=== PATIENT | female | born 1955 | race Caucasian/White ===

== ENCOUNTER → 2020-09-06 | Outpatient (CLI) | payer MEDICARE, BC, OTHER ==
[~2020-09-06] MED LIST: ALBU8.5H8 INH; DULO60CA7 PO; GABA600T7 PO; IBUP200T49 PO; METH-640 PO; METO100T5 PO; TYLENOL #4 PO; VALS80TA3 PO; [UNRECOGNIZED DRUG - OTHER] PO
[2020-09-06 14:33] LABS: ALANINE AMINOTRANSFERASE 37 U/L (12-78); ALBUMIN 3.6 g/dL (3.4-5.0); ANION GAP 5 mmol/L (5-15); CALCIUM 8.4 mg/dL (8.5-10.1); CHLORIDE 105 mmol/L (98-107); CREATININE 0.53 mg/dL (0.55-1.02)
[2020-09-06 14:35] LABS: ALKALINE PHOSPHATASE 119 U/L (45-117); BILIRUBIN,TOTAL 0.3 mg/dL (0.2-1.0); TOTAL PROTEIN 6.8 g/dL (6.4-8.2)
== END | disposition home or self-care (01) ==
LOC: STAR 13:07
PROVIDERS: ATTEND Orthopaedic Surgery
DX: Z01.818 Encounter for other preprocedural examination (principal); M25.512 Pain in left shoulder; Z20.822 Contact with and (suspected) exposure to COVID-19
CPT/HCPCS: 36415; 80053; 93005; U0003

== ENCOUNTER 2020-09-12 08:20 | Inpatient (IN) | payer MEDICARE, BC, OTHER ==
[~2020-09-12] VITALS: Ht 160 cm; Wt 106.8 kg
[2020-09-12] MEDS ORDERED: LACTATED RINGERS 1,000 ML IV SCH (09:00)
[2020-09-12] MEDS ORDERED: CHLORHEXIDINE 15 ML UDC PO ONE (09:00)
[2020-09-12 09:15] VITALS: BP 120/77
[2020-09-12] MEDS ORDERED: TRANEXAMIC ACID 100 MG/ML, 10ML ONE (09:23)
[2020-09-12] MEDS ORDERED: CLINDAMYCIN 150 MG/ML, 6ML ONE (09:23)
[2020-09-12] MEDS ORDERED: BUPIVACAINE/PF 0.5% ONE (09:23)
[2020-09-12] MEDS ORDERED: EPINEPHRINE 1 MG/ML, 1ML ONE (09:24)
[2020-09-12] MEDS ORDERED: VANCOMYCIN 1,000 MG ONE (09:24)
[2020-09-12] MEDS ORDERED: MIDAZOLAM 1 MG/ML, 2ML ONE (09:49)
[2020-09-12] MEDS ORDERED: FENTANYL PF 250 MCG/5ML ONE (09:50)
[2020-09-12] MEDS ORDERED: PROPOFOL 10 MG/ML, 20ML ONE (09:50)
[2020-09-12] MEDS ORDERED: CEFAZOLIN 1,000 MG ONE ×2 (09:52)
[2020-09-12] MEDS ORDERED: ROCURONIUM 10MG/ML,5ML ONE (09:52)
[2020-09-12] MEDS ORDERED: LIDOCAINE-MPF 2% ,5ML ONE (09:52)
[2020-09-12] MEDS ORDERED: DEXAMETHASONE 4 MG/ML, 5ML ONE (09:52)
[2020-09-12] MEDS ORDERED: ONDANSETRON 2MG/ML, 2ML ONE ×2 (09:52→12:14)
[2020-09-12] MEDS ORDERED: GLYCOPYRROLATE 0.2MG/1ML, 5ML ONE (10:29)
[2020-09-12] MEDS ORDERED: NEOSTIGMINE 1 MG/ML, 10ML ONE (10:29)
[2020-09-12] MEDS ORDERED: hydrALAzine 20 MG/ML, 1ML IV PRN (11:30)
[2020-09-12] MEDS ORDERED: DIAZEPAM 5 MG/ML, 2ML IVPush PRN (11:30)
[2020-09-12] MEDS ORDERED: ONDANSETRON 2MG/ML, 2ML IVPush PRN (11:30)
[2020-09-12] MEDS ORDERED: MEPERIDINE/PF 25MG/0.5ML IVPush PRN (11:30)
[2020-09-12] MEDS ORDERED: HYDROmorphone 1 MG/ML, 1ML INJ IVPush PRN (11:30)
[2020-09-12] MEDS ORDERED: OXYcodone 5 MG/5 ML ORAL.SOL UDC PO PRN (11:30)
[2020-09-12] MEDS ORDERED: FENTANYL PF 100 MCG/2ML IV PRN (11:30)
[2020-09-12] MEDS ORDERED: DIPHENHYDRAMINE 50 MG/ML, 1ML IVPush PRN (11:30)
[2020-09-12] MEDS ORDERED: ACETAMINOPHEN 325 MG TABLET PO PRN (11:30)
[2020-09-12] MEDS ORDERED: LABETALOL 5MG/ML, 20ML IV PRN (11:30)
[2020-09-12] MEDS ORDERED: ONDANSETRON 2MG/ML, 2ML IV PRN (14:00)
[2020-09-12] MEDS ORDERED: HYDROmorphone 2 MG/ML, 1ML IVPush PRN (14:00)
[2020-09-12] MEDS ORDERED: ALBUTEROL HFA 90 MCG/SPRAY INH PRN (14:30)
[2020-09-12 14:40] VITALS: BP 128/60
[2020-09-12] MEDS: POTASSIUM CHLORIDE 40 MEQ in D5%-0.45% NACL 1,000 ML IV SCH ×2 (15:55→22:28)
[2020-09-12] MEDS ORDERED: ASA/APAP/ CAFFEINE TABLET PO PRN (16:30)
[2020-09-12] MEDS: CEFAZOLIN PMX 1GM/50ML 50 ML IVPB SCH (19:35)
[2020-09-12] MEDS: OXYcodone/APAP 5/325MG TABLET PO PRN (19:35)
[2020-09-12 20:24] VITALS: BP 119/69
[2020-09-12] MEDS: METHOCARBAMOL 750 MG TABLET PO SCH (20:58)
[2020-09-12] MEDS: SODIUM CHLORIDE FLUSH 10ML SYR IVF SCH (20:58)
[2020-09-12] MEDS: GABAPENTIN 300 MG CAPSULE PO SCH (20:58)
[2020-09-12] MEDS: IBUPROFEN 800 MG TABLET PO SCH (20:58)
[2020-09-13 00:18] VITALS: BP 134/78
[2020-09-13] MEDS: OXYcodone/APAP 5/325MG TABLET PO PRN ×4 (00:40→14:25)
[2020-09-13 04:40] VITALS: BP 137/79
[2020-09-13] MEDS: CEFAZOLIN PMX 1GM/50ML 50 ML IVPB SCH (05:02)
[2020-09-13] MEDS ORDERED: METOPROLOL SUCCINATE 100 MG TAB.ER.24H PO SCH (06:00)
[2020-09-13 08:30] VITALS: BP 144/79
[2020-09-13] MEDS: GABAPENTIN 300 MG CAPSULE PO SCH (08:32)
[2020-09-13] MEDS: METHOCARBAMOL 750 MG TABLET PO SCH (08:32)
[2020-09-13] MEDS: IBUPROFEN 800 MG TABLET PO SCH (08:43)
[2020-09-13] MEDS: SODIUM CHLORIDE FLUSH 10ML SYR IVF SCH (08:44)
[2020-09-13] MEDS ORDERED: VALSARTAN 80 MG TABLET PO SCH (09:00)
[2020-09-13] MEDS ORDERED: DULOXETINE 30 MG CAPSULE.DR PO SCH (09:00)
[2020-09-13] MEDS ORDERED: OXYC5CAP2 PO (13:21)
[2020-09-13 13:50] VITALS: BP 158/82
== END 2020-09-13 14:38 | disposition home or self-care (01) | DRG 483 ==
LOC: OUT 08:20 → 4NE 13:11 → OUT 13:12 → DCLOUNGE 09-13 14:30
PROVIDERS: ADMIT Orthopaedic Surgery; ATTEND Orthopaedic Surgery
PROC: 0LS40ZZ Reposition Left Upper Arm Tendon, Open Approach (ICD-10-PCS; 2020-09-12)
PROC: 0RRK00Z Replacement of Left Shoulder Joint with Reverse Ball and Socket Synthetic Substitute, Open Approach (ICD-10-PCS; principal; 2020-09-12 10:30)
DX: M19.012 Primary osteoarthritis, left shoulder (principal); M75.22 Bicipital tendinitis, left shoulder
CPT/HCPCS: C1713; C1776; G0378; J0171; J0690; J1100; J1170; J2250; J2405; J2704; J2710; J3010; J3370; J3480; J7120